=== PATIENT | female | born 1945 | race Caucasian/White ===

== ENCOUNTER 2024-04-13 12:44 | Outpatient (RCR) | payer MEDICARE, OTHER, SELFPAY | END 2024-08-11 23:59 | disposition home or self-care (01) | PROVIDERS: Visit Provider Orthopaedic Surgery | DX: M19.90 Unspecified osteoarthritis, unspecified site (principal); M62.469 Contracture of muscle, unspecified lower leg; M25.571 Pain in right ankle and joints of right foot; R60.0 Localized edema; Z51.89 Encounter for other specified aftercare | CPT/HCPCS: 97165; 97535 ==

== ENCOUNTER 2024-08-29 14:30 | Outpatient (RCR) | payer MEDICARE, OTHER, SELFPAY | END 2024-09-06 13:11 | disposition home or self-care (01) | PROVIDERS: Visit Provider Orthopaedic Surgery | DX: M25.571 Pain in right ankle and joints of right foot (principal); Z98.1 Arthrodesis status; Z48.89 Encounter for other specified surgical aftercare | CPT/HCPCS: 97110; 97140; 97161 ==

== ENCOUNTER 2025-04-25 13:00 | Outpatient (RCR) | payer MEDICARE, OTHER, SELFPAY | END 2025-05-18 14:45 | disposition home or self-care (01) | PROVIDERS: Visit Provider Orthopaedic Surgery | DX: Z48.89 Encounter for other specified surgical aftercare (principal); Z51.89 Encounter for other specified aftercare | CPT/HCPCS: 97140; 97161 ==